=== PATIENT | male | born 1995 | race African-American/Black ===

== ENCOUNTER → 2017-05-10 | Outpatient (CLI) | payer MEDICAID ==
[~2017-05-10] MED LIST: ADDERALL20 MG PO; AMOXICILLIN 50500 MG PO; AMOXICILLIN875 MG PO; ATIVAN 1MG T1 MG/TAB PO; COZAAR 50MG50 MG/TAB PO; INDERAL 10MG10 MG PO; LEXAPRO20 MG PO; PROAIR HFA0.09 MG/AC IH; PROTONIX 40MG T40 MG PO; PROVENTIL0.09 MG/A1 IH; TENEX PO; XANAX 0.5MG0.5 MG PO; XANAX 1MG1 MG PO; ZESTRIL 5MG5 MG PO
[2017-05-10 10:27] LABS: ADJUSTED CALCIUM 9.2 mg/dL (8.4-10.2); BILIRUBIN,TOTAL 0.4 mg/dL (0.0-1.0); CALCIUM 9.2 mg/dL (8.4-10.2); CHOLESTEROL RISK RATIO 4.4; CREATININE, serum 0.75 mg/dL (0.66-1.25); POTASSIUM 3.9 mmol/L (3.4-5.0); TOTAL PROTEIN 7.7 gm/dL (6.4-8.2)
[2017-05-10 10:56] LABS: THYROID STIMULATING HORMONE 3.45 uIU/mL (0.465-4.680)
== END ==
LOC: COL.LAB 09:56
PROVIDERS: Internal Medicine Interventional Cardiology
DX: Z01.89 Encounter for other specified special examinations (principal)

== ENCOUNTER → 2017-08-22 | Outpatient (CLI) | payer MEDICAID, BC ==
[~2017-08-22] VITALS: Ht 194.3 cm; Wt 210.2 kg
[~2017-08-22] MED LIST changes: +ATARAX50 MG PO; +COZAAR100 MG PO; +LOPRESSOR100 MG PO
[2017-08-22 08:40] VITALS: BP 120/74; PULSE 72
== END ==
LOC: LIGHT 08:25
DX: F33.9 Major depressive disorder, recurrent, unspecified (principal); K21.9 Gastro-esophageal reflux disease without esophagitis; I10 Essential (primary) hypertension; F50.81 Binge eating disorder; Z68.43 Body mass index [BMI] 50.0-59.9, adult; Z71.3 Dietary counseling and surveillance
CPT/HCPCS: G0463

== ENCOUNTER 2017-09-13 01:18 | Observation (INO) | payer OTHER, MEDICAID ==
[~2017-09-13] VITALS: Ht 193 cm; Wt 186.8 kg
[2017-09-13 01:48] LABS: BASO % 0.4 % (0.0-2.0); EOS # 0.1 (0.0-0.7); GRAN # 6.5 (1.4-6.5); GRAN % 71.5 % (42.2-75.2); HEMOGLOBIN 12.8 g/dl (13.5-18.0); LYMPH # 1.8 (1.2-3.4); LYMPH % 20.2 % (20.0-51.0); MEAN CELL VOLUME 79 fl (80.0-100.0); MEAN CORPUSCULAR HEMOGLOBIN 25 pg (27.0-31.0); MEAN CORPUSCULAR HGB CONC 31 g/dl (33.0-37.0); MEAN PLATELET VOLUME 8.4 fl (7.4-10.4); MONO # 0.6 (0.1-0.6); MONO % 6.8 % (1.7-9.3); PLATELET COUNT 354 K/mm3 (130-400); RED BLOOD COUNT 5.21 M/mm3 (4.20-5.60); REDCELL DISTRIBUTION WIDTH-CV 14.5 % (11.5-14.5)
[2017-09-13 02:00] LABS: ALBUMIN 3.8 gm/dL (3.5-5.0); BILIRUBIN,TOTAL 0.2 mg/dL (0.0-1.0); CALCIUM 8.8 mg/dL (8.4-10.2); CREATININE, serum 0.94 mg/dL (0.66-1.25); MAGNESIUM 1.7 mg/dL (1.6-2.3); PHOSPHOROUS 2.4 mg/dL (2.5-4.5); POTASSIUM 4.2 mmol/L (3.4-5.0); TOTAL PROTEIN 7.8 gm/dL (6.4-8.2)
[2017-09-13 02:14] LABS: TROPONIN-I 0.094 ng/mL (0.000-0.034)
[2017-09-13 02:30] LABS: TSH w REFLEX 2.99 uIU/mL (0.465-4.680)
[2017-09-13 03:17] VITALS: BP 125/72; PULSE 87; TEMP 98.3
[2017-09-13 05:05] VITALS: BP 143/61; PULSE 85; TEMP 98.3
[2017-09-13 06:04] VITALS: BP 143/61; PULSE 87; TEMP 97.4
[2017-09-13 06:35] LABS: CHOLESTEROL RISK RATIO 3.6
[2017-09-13 07:11] LABS: TRICYCLIC ANTIDEPRESS URINE NEGATIVE
[2017-09-13 07:57] VITALS: BP 135/64; PULSE 86; TEMP 98.4
[2017-09-13 10:00] VITALS: BP 140/74; PULSE 72; TEMP 98.5
== END 2017-09-13 12:45 | disposition home or self-care (01) ==
LOC: COL.ER 01:18 → SURG 02:39
PROVIDERS: Emergency Medicine; Nurse Practitioner
DX: I47.1 Supraventricular tachycardia (principal); I10 Essential (primary) hypertension; F41.9 Anxiety disorder, unspecified; E66.9 Obesity, unspecified; I35.1 Nonrheumatic aortic (valve) insufficiency; Z90.79 Acquired absence of other genital organ(s); Z87.891 Personal history of nicotine dependence; Z83.3 Family history of diabetes mellitus; Z82.49 Family history of ischemic heart disease and other diseases of the circulatory system
CPT/HCPCS: J7030; J7040

== ENCOUNTER 2018-01-04 09:09 | Emergency (ER) | payer OTHER, MEDICAID ==
[~2018-01-04] VITALS: Ht 190.5 cm; Wt 222.7 kg
[2018-01-04 09:19] VITALS: TEMP 99
[2018-01-04] MEDS ORDERED: WELLBUTRIN XL300 M1 PO (09:23)
[2018-01-04] MEDS ORDERED: ATARAX 25MG25 MG/TAB PO (09:23)
[2018-01-04 09:39] LABS: BASO % 0.4 % (0.0-2.0); EOS # 0.2 (0.0-0.7); EOS % 2.3 % (0-4.0); GRAN # 4.8 (1.4-6.5); GRAN % 55.5 % (42.2-75.2); HEMATOCRIT 40.8 % (42.0-52.0); LYMPH # 2.8 (1.2-3.4); LYMPH % 32.1 % (20.0-51.0); MEAN CELL VOLUME 77 fl (80.0-100.0); MEAN CORPUSCULAR HEMOGLOBIN 24 pg (27.0-31.0); MEAN CORPUSCULAR HGB CONC 32 g/dl (33.0-37.0); MEAN PLATELET VOLUME 8.3 fl (7.4-10.4); MONO # 0.8 (0.1-0.6); MONO % 9.6 % (1.7-9.3); PLATELET COUNT 336 K/mm3 (130-400); RED BLOOD COUNT 5.32 M/mm3 (4.20-5.60); REDCELL DISTRIBUTION WIDTH-CV 15.4 % (11.5-14.5)
[2018-01-04 09:49] LABS: ALANINE AMINOTRANSFERASE 35 U/L (21-72); ALBUMIN 3.9 gm/dL (3.5-5.0); ALKALINE PHOSPHATASE 73 U/L (50-136); ANION GAP 11 mmol/L (7-16); AST,SGOT 27 U/L (15-37); BILIRUBIN,TOTAL 0.4 mg/dL (0.0-1.0); BLOOD UREA NITROGEN 17 mg/dL (9-20); CALCIUM 8.7 mg/dL (8.4-10.2); CARBON DIOXIDE 26 mmol/L (22-30); CHLORIDE 102 mmol/L (98-107); CREATINE KINASE 76 U/L (55-170); CREATININE, serum 0.74 mg/dL (0.66-1.25); GLUCOSE 109 mg/dL (74-106); POTASSIUM 3.7 mmol/L (3.4-5.0); SODIUM 139 mmol/L (137-145); TOTAL PROTEIN 7.5 gm/dL (6.4-8.2)
[2018-01-04 10:04] LABS: TROPONIN-I < 0.012 ng/mL (0.000-0.034)
[2018-01-04 13:42] VITALS: BP 128/79; PULSE 74
== END 2018-01-04 13:43 | disposition home or self-care (01) ==
LOC: COL.ER 09:09
DX: R07.89 Other chest pain (principal); I10 Essential (primary) hypertension; E78.5 Hyperlipidemia, unspecified; E66.9 Obesity, unspecified; F32.9 Major depressive disorder, single episode, unspecified

== ENCOUNTER → 2018-09-11 | Outpatient (CLI) | payer OTHER ==
[~2018-09-11] MED LIST changes: +ATARAX 25MG25 MG/TAB PO; +WELLBUTRIN XL300 M1 PO
[2018-09-11 18:35] LABS: THYROID STIMULATING HORMONE 4.84 uIU/mL (0.465-4.680)
== END ==
LOC: ZCOL.LAB 16:37
PROVIDERS: Family Medicine
DX: R79.89 Other specified abnormal findings of blood chemistry (principal)

== ENCOUNTER → 2019-07-09 | Outpatient (CLI) | payer OTHER | LOC: BHSO 09:34 | DX: F31.81 Bipolar II disorder (principal) ==

== ENCOUNTER → 2020-11-11 | Outpatient (CLI) | payer MEDICAID | LOC: COL.CARD 06:30 | DX: R55 Syncope and collapse (principal) ==

== ENCOUNTER 2023-05-12 11:20 | Emergency (ER) | payer MEDICAID ==
[~2023-05-12] VITALS: Ht 193 cm; Wt 260.5 kg
[2023-05-12 11:25] VITALS: TEMP 97.9
[2023-05-12 12:03] LABS: BASO % 0.3 % (0.0-2.0); EOS # 0.1 K/mm3 (0.0-0.7); EOS % 1.3 % (0.0-4.0); GRAN # 5.7 K/mm3 (1.4-6.5); GRAN % 58.9 % (42.2-75.2); HEMATOCRIT 43.1 % (42.0-52.0); LYMPH % 30.4 % (20.0-51.0); MEAN CELL VOLUME 76 fl (80.0-100.0); MEAN CORPUSCULAR HEMOGLOBIN 23 pg (27-31); MEAN CORPUSCULAR HGB CONC 30 g/dl (33.0-37.0); MEAN PLATELET VOLUME 8.3 fl (7.4-10.4); MONO # 0.9 K/mm3 (0.1-0.6); MONO % 8.9 % (1.7-9.3); PLATELET COUNT 394 K/mm3 (130-400); RED BLOOD COUNT 5.65 M/mm3 (4.20-5.60); REDCELL DISTRIBUTION WIDTH-CV 16.8 % (11.5-14.5)
[2023-05-12 12:22] LABS: ALANINE AMINOTRANSFERASE 16 U/L (0-55); ALBUMIN 3.4 gm/dL (3.5-5.0); ALKALINE PHOSPHATASE 84 U/L (40-150); ANION GAP 10 mmol/L (7-16); AST,SGOT 16 U/L (5-34); BILIRUBIN,TOTAL 0.5 mg/dL (0.2-1.2); BLOOD UREA NITROGEN 14 mg/dL (9-21); CALCIUM 9.6 mg/dL (8.4-10.2); CARBON DIOXIDE 23 mmol/L (22-29); CHLORIDE 106 mmol/L (98-107); CREATININE, serum 0.72 mg/dL (0.72-1.25); GLUCOSE 114 mg/dL (70-99); POTASSIUM 3.7 mmol/L (3.5-4.5); SODIUM 139 mmol/L (136-145); TOTAL PROTEIN 8.2 gm/dL (6.2-8.1)
[2023-05-12 12:27] LABS: TROPONIN-I < 0.010 ng/mL (0.00-0.033)
[2023-05-12 15:20] VITALS: BP 137/78; PULSE 69
== END 2023-05-12 15:20 | disposition home or self-care (01) ==
LOC: COL.ER 11:20
PROVIDERS: Personal Emergency Response Attendant
DX: R07.9 Chest pain, unspecified (principal); R53.1 Weakness; I44.0 Atrioventricular block, first degree
CPT/HCPCS: J7030

== ENCOUNTER 2023-12-12 10:00 | Emergency (ER) | payer MEDICAID ==
[~2023-12-12] VITALS: Ht 193 cm; Wt 265.0 kg
[2023-12-12 10:07] VITALS: TEMP 98.3
[2023-12-12 10:40] LABS: BASO % 0.3 % (0.0-2.0); EOS # 0.1 K/mm3 (0.0-0.7); EOS % 0.7 % (0.0-4.0); GRAN # 6.1 K/mm3 (1.4-6.5); GRAN % 60.7 % (42.2-75.2); MEAN CELL VOLUME 78 fl (80.0-100.0); MEAN CORPUSCULAR HEMOGLOBIN 24 pg (27-31); MEAN CORPUSCULAR HGB CONC 30 g/dl (33.0-37.0); MEAN PLATELET VOLUME 8.3 fl (7.4-10.4); MONO # 0.8 K/mm3 (0.1-0.6); PLATELET COUNT 407 K/mm3 (130-400); RED BLOOD COUNT 5.52 M/mm3 (4.20-5.60); REDCELL DISTRIBUTION WIDTH-CV 15.5 % (11.5-14.5)
[2023-12-12 11:00] LABS: ALANINE AMINOTRANSFERASE 24 U/L (0-55); ALBUMIN 3.5 g/dL (3.5-5.0); ALKALINE PHOSPHATASE 93 U/L (40-150); ANION GAP 11 mmol/L (7-16); AST,SGOT 19 U/L (5-34); BILIRUBIN,TOTAL 0.5 mg/dL (0.2-1.2); BLOOD UREA NITROGEN 15 mg/dL (9-21); CALCIUM 9.6 mg/dL (8.4-10.2); CHLORIDE 104 mEq/L (98-107); CREATININE, serum 0.86 mg/dL (0.72-1.25); GLUCOSE 92 mg/dL (70-99); POTASSIUM 3.8 mEq/L (3.5-4.5); SODIUM 139 mEq/L (136-145); TOTAL PROTEIN 8.1 g/dl (6.2-8.1)
[2023-12-12 11:07] LABS: TROPONIN-I < 0.010 ng/mL (0.00-0.033)
[2023-12-12 12:32] VITALS: BP 136/79; PULSE 70
== END 2023-12-12 12:32 | disposition home or self-care (01) ==
LOC: COL.ER 10:00
PROVIDERS: Nurse Practitioner
DX: R06.02 Shortness of breath (principal); E66.01 Morbid (severe) obesity due to excess calories; Z86.79 Personal history of other diseases of the circulatory system; Z68.45 Body mass index [BMI] 70 or greater, adult; Z79.899 Other long term (current) drug therapy